=== PATIENT | male | born 1985 | race African-American/Black ===

== ENCOUNTER 2016-05-03 07:37 | Emergency (ER) | payer SELFPAY ==
[2016-05-03 07:46] VITALS: TEMP 97.4; BMI 22.4
[2016-05-03 08:10] LABS: AUTOMATED BASOPHIL 0.3 % (0-2); AUTOMATED EOSINOPHIL 1.4 % (0-5); AUTOMATED LYMPH 46.7 % (17-44); AUTOMATED MONOCYTE 5.7 % (3-10); AUTOMATED NEUTROPHIL 45.9 % (45-76); MPV 7.7 fL (7.4-10.4)
[2016-05-03 08:26] LABS: BLOOD UREA NITROGEN 8 MG/DL (9-20); CALCIUM 9.3 MG/DL (8.4-10.2); CALCULATED OSMOLALITY 272 MOs/Kg (270-290); CHLORIDE 103 mEq/L (98-107); GLUCOSE 112 MG/DL (70-99); SODIUM LEVEL 142 mEq/L (137-146)
[2016-05-03] MEDS ORDERED: PANTOPRAZOLE 40 MG VIAL IV ONE (08:52)
--- NOTE | 2016-05-03 09:18 | EDPRACDOC ---
- General Information Chief Complaint: Abdominal Pain Stated Complaint: UPPER RIGHT ABD PAIN Time Seen by Provider: 05/03/16 08:51 Information Source: Patient Mode Of Arrival: Car Home Medications: Home Medications Ondansetron HCl [Zofran] 4 mg PO TID PRN #14 tablet 05/03/16 Allergies/Adverse Reactions: Allergies Allergy/AdvReac Type Severity Reaction Status Date / Time Penicillins Allergy Nausea/Vomi Verified 05/03/16 07:46 ting - History of Present Illness Onset: 0600 Pain Location: Reports: Epigastric, RUQ Pain Context: Reports: Spontaneous Pain Severity: Moderate Pain Quality: Reports: Colicky, Cramping Pain Radiation: Reports: No Radiation Adult Abdominal History: Denies: Abdominal Surgery, Urolithiasis, Bowel Obstruction, Similar Pain (dx) Modifying Factors: improves with: Nothing Associated Signs & Symptoms: Reports: Nausea, Vomiting (X1). 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 Denies: Amphetamine Use, Benzodiazipine Use, Cocaine Use, Marijuana Use ETOH: Alcoholic (10+ BEERS PER DAY.) Substance Abuse: None Lives With: Family Lives In: Home EDM Review of Systems - Review of Systems ROS Negative Except as Marked: Yes All systems reviewed and were negative except as marked - Physical Exam Constitutional: Alert (Awake), No apparent distress Oriented to: Time, Person, Place Last recorded Vital Signs: Last Vital Signs Temp 97.4 F L 05/03/16 07:41 Pulse 68 05/03/16 07:41 Resp 18 05/03/16 07:41 BP 152/88 05/03/16 07:41 Pulse Ox 98 05/03/16 07:41 Oxygen Pulse Oxygen Saturation 98 O2 Device Room Air Oxygen Flow Rate Fraction of Inspired Oxygen ( FIO2) - HEENT Head: Normal ( normocephalic) Eye Exam: Normal (PERRL, EOMI, Sclera white) Oropharynx: Normal (Pharynx:Moist without exudate,Gums-no swelling) Nose: No Symptoms Reported (septum midline) Neck: Normal (FROM, trachea at midline) - Respiratory/Cardiovascular Respiratory: Normal - CTA (BBS clear to auscultation without adventitious sounds ) Cardiovascular: Normal (RRR without murmur, gallop or rub) - GI Auscultation: Normal (NABS) Palpation: Normal (Soft,No rebound or guarding, non distended) Tenderness: Non tender. negative: Guarding, RUQ, Rebound, Rigidity Verma's Sign: Negative - Musculoskeletal Back: Normal (Non-Tender) Extremities: Normal (Normal tone, Pulses 2+ No cyanosis or edema, FROM) - Integumentary Skin: Normal, Warm, Dry Lymphatics: Normal (no adenopathy) - Neurologic Memory Impaired: Normal Motor Function: Normal (Normal tone, Pulses 2+ No cyanosis or edema, FROM) Cranial Nerve: Normal (CN II-X11 intact sensation, strength 5/5) Cerebellar: Normal Mood Description: Normal Perception: Normal ED Procedures - Ultrasound:Limited Abdominal/Renal Indication: Abdominal Pain Position: Supine Liver Findings: Normal Aorta Findings: Normal Biliary Findings: Normal, Other (NO SONOGRAPHIC VERMA) - Re-evaluation Re-evaluation 1 Re-evaluation Time: 09:17 (PAIN RESOLVED. PATIENT ARRIVES REQUESTING HOME) - Results 05/03/16 08:00 05/03/16 08:00 WBC 13.5 xk/uL (3.8-10.8) H 05/03/16 08:00 RBC 5.67 xM/uL (4.70-6.10) 05/03/16 08:00 Hgb 17.5 g/dL (14.0-18.0) 05/03/16 08:00 Hct 51.2 % (42-52) 05/03/16 08:00 MCV 90 fL (80-94) 05/03/16 08:00 MCH 30.9 pg (27-32) 05/03/16 08:00 MCHC 34.2 g/dl (33-36) 05/03/16 08:00 RDW 14.0 % (11.5-14.5) 05/03/16 08:00 Plt Count 235 xk/uL (130-400) 05/03/16 08:00 MPV 7.7 fL (7.4-10.4) 05/03/16 08:00 Neut % (Auto) 45.9 % (45-76) 05/03/16 08:00 Lymph % (Auto) 46.7 % (17-44) H 05/03/16 08:00 Bonner % (Auto) 5.7 % (3-10) 05/03/16 08:00 Eos % (Auto) 1.4 % (0-5) 05/03/16 08:00 Baso % (Auto) 0.3 % (0-2) 05/03/16 08:00 Absolute Neuts (auto) 6.08 xk/uL (1.7-8.2) 05/03/16 08:00 Absolute Lymphs (auto) 6.21 xk/uL (0.65-4.75) H 05/03/16 08:00 Sodium 142 mEq/L (137-146) 05/03/16 08:00 Potassium 3.5 mEq/L (3.5-5.1) 05/03/16 08:00 Chloride 103 mEq/L (98-107) 05/03/16 08:00 Carbon Dioxide 24 mMOL/L (22-33) 05/03/16 08:00 Anion Gap 19 mEq/L (8-16) H 05/03/16 08:00 BUN 8 MG/DL (9-20) L 05/03/16 08:00 Creatinine 0.90 MG/DL (0.66-1.25) 05/03/16 08:00 Estimated GFR (MDRD) > 60 mL/min (>=60) 05/03/16 08:00 Glucose 112 MG/DL (70-99) H 05/03/16 08:00 Calculated Osmolality 272 MOs/Kg (270-290) 05/03/16 08:00 Calcium 9.3 MG/DL (8.4-10.2) 05/03/16 08:00 Total Bilirubin 0.9 MG/DL (0.2-1.3) 05/03/16 08:00 AST 162 IU/L (17-59) H 05/03/16 08:00 ALT 64 IU/L (21-72) 05/03/16 08:00 Alkaline Phosphatase 100 IU/L (38-126) 05/03/16 08:00 Total Protein 8.0 G/DL (6.3-8.2) 05/03/16 08:00 Albumin 4.4 G/DL (3.5-5.0) 05/03/16 08:00 Lab Results 05/03/16 05/03/16 08:00 08:00 WBC 13.5 H RBC 5.67 Hgb 17.5 Hct 51.2 MCV 90 MCH 30.9 MCHC 34.2 RDW 14.0 Plt Count 235 MPV 7.7 Neut % (Auto) 45.9 Lymph % (Auto) 46.7 H Bonner % (Auto) 5.7 Eos % (Auto) 1.4 Baso % (Auto) 0.3 Absolute Neuts (auto) 6.08 Absolute Lymphs (auto) 6.21 H Sodium 142 Potassium 3.5 Chloride 103 Carbon Dioxide 24 Anion Gap 19 H BUN 8 L Creatinine 0.90 Estimated GFR (MDRD) > 60 Glucose 112 H Calculated Osmolality 272 Calcium 9.3 Total Bilirubin 0.9 AST 162 H ALT 64 Alkaline Phosphatase 100 Total Protein 8.0 Albumin 4.4 - Departure Disposition: Home Condition: Stable Final Diagnosis: Epigastric abdominal pain, Alcohol use disorder, mild, abuse Instructions: Non-pharmacological Pain Management Therapies for Adults (GEN), Abdominal Pain (ED), Alcohol Use Disorder (ED) Education/Counseling Given To: Patient, Family Member, Friend Education/Counseling Given Regarding: Diagnosis, Treatment, Prognosis Referrals: None,No Provider [Primary Care Provider] - One Week Prescriptions: New Ondansetron HCl [Zofran] 4 mg PO TID PRN #14 tablet PRN Reason: NAUSEA OR VOMITING Additional Instructions: 919 Return to the Emergency Department for worse or different abdominal problems, especially in the next 12 - 24 hours. The test today did not determine the cause of your pain..
[2016-05-03 09:33] VITALS: BP 143/83; PULSE 62
== END 2016-05-03 09:32 | disposition home or self-care (01) ==
LOC: ED 07:37
DX: R10.13 Epigastric pain (principal); F10.19 Alcohol abuse with unspecified alcohol-induced disorder
CPT/HCPCS: 80053; 83690; 85025; 99283; S0164